=== PATIENT | female | born 1995 | race Caucasian/White ===

== ENCOUNTER 2021-11-03 00:28 | Emergency (ER) | payer MEDICAID ==
[~2021-11-03] VITALS: Ht 154.9 cm; Wt 65.0 kg
[~2021-11-03 00:28] MED LIST: ALBU18HF2 IH; ASCO1TAB39 PO; CHOL2000 PO; CYAN50003 PO; CYCL-1 PO; DESO1TAB PO; MULT-1074 PO
[2021-11-03 00:40] VITALS: BP 126/81
== END 2021-11-03 01:17 ==
LOC: ER 00:29
DX: Z02.89 Encounter for other administrative examinations (principal); J45.909 Unspecified asthma, uncomplicated; Z88.5 Allergy status to narcotic agent; Z79.899 Other long term (current) drug therapy
CPT/HCPCS: 99283